=== PATIENT | male | born 1965 | race Caucasian/White ===

== ENCOUNTER 2024-07-08 14:52 | Inpatient (IN) | payer MEDICARE, MEDICAID ==
[~2024-07-08] VITALS: Ht 193 cm; Wt 75.7 kg
[~2024-07-08 14:52] MED LIST: ACET-2247 PO; ASPI-1450 PO; ATOR10TA PO; BENZ2TAB84 PO; DAPA10TA7 PO; ERGO500054 PO; FLUP25VI5 SQ; GABA-1181 PO; IBUP-1492 PO; INSLAN SQ; MAG30ORA11 PO; METF-1211 PO; MULT-248 PO; OLAN10TA74 PO
[2024-07-08] MEDS ORDERED: ZOLPIDEM TARTRATE 10 MG TABLET PO PRN (20:00)
[2024-07-08] MEDS ORDERED: OLANZapine 5 MG RAPDIS TABLET PO PRN (20:00)
[2024-07-08] MEDS ORDERED: LORazepam 2 MG TABLET PO PRN (20:00)
[2024-07-08] MEDS ORDERED: MAG HYDROX/ALUMINUM HYD/SIMETH ES 30 ML SUSPENSION UDCUP PO PRN (21:30)
[2024-07-08] MEDS ORDERED: GuaiFENesin/D-METHORPHAN [SUGAR-FREE] 200-20MG/10 ML SYRUP UDCUP PO PRN (21:30)
[2024-07-08] MEDS ORDERED: TUBERCULIN, PURIFIED PROTEIN DERIVATIVE 5 TU/0.1 ML SYRINGE ID ONE (21:30)
[2024-07-08] MEDS ORDERED: MAGNESIUM HYDROXIDE SUSPENSION 30 ML UDCUP PO PRN (21:30)
[2024-07-08] MEDS ORDERED: PROMETHAZINE HCL 25 MG TABLET PO PRN (21:30)
[2024-07-08] MEDS ORDERED: HydrOXYzine PAMOATE 50 MG CAPSULE PO PRN (21:30)
[2024-07-08] MEDS ORDERED: LOPERAMIDE HCL 2 MG CAPSULE PO PRN (21:30)
[2024-07-08] MEDS ORDERED: ACETAMINOPHEN 325 MG TABLET PO PRN (21:30)
[2024-07-08] MEDS ORDERED: HALOPERIDOL LACTATE 5 MG/ML VIAL IM PRN (21:45)
[2024-07-09 00:27] VITALS: BP 112/60; PULSE 84; RESP 18; TEMP 98.3; O2SAT 95
[2024-07-09 00:28] VITALS: BP 112/60; PULSE 84; RESP 18; TEMP 98.3; O2SAT 95
[2024-07-09] MEDS: PALIPERIDONE PALMITATE 234 MG/1.5 ML SYRINGE IM ONE (09:00)
[2024-07-09] MEDS: THIAMINE 100 MG TABLET PO SCH (09:00)
[2024-07-09] MEDS: FOLIC ACID 1 MG TABLET PO SCH (09:00)
[2024-07-09] MEDS: TRIHEXYPHENIDYL HCL 2 MG TABLET PO SCH (09:00)
[2024-07-09] MEDS ORDERED: HALOPERIDOL 1 MG TABLET PO SCH (09:00)
[2024-07-09] MEDS: MULTIVITAMINS WITH MINERALS, THERAPEUTIC TABLET PO SCH (09:00)
[2024-07-09 10:00] VITALS: RESP 18
[2024-07-09] MEDS ORDERED: FluPHENAZine HCL 5 MG TABLET PO PRN (15:45)
[2024-07-09] MEDS ORDERED: FluPHENAZine HCL 1 MG TABLET PO SCH (17:00)
[2024-07-09 20:10] VITALS: BP 113/71; PULSE 85; RESP 18; TEMP 97.7; O2SAT 99
[2024-07-09] MEDS: MELATONIN 5 MG TABLET PO SCH (20:58)
[2024-07-10 08:28] VITALS: BP 107/62; PULSE 75; RESP 16; TEMP 98.1; O2SAT 96
[2024-07-10] MEDS ORDERED: FLUPHENAZINE HCL 5 MG/ML PO SCH (09:00)
[2024-07-10] MEDS ORDERED: FluPHENAZine HCL 2.5 MG/ML INJ IM PRN (09:00)
[2024-07-10 20:40] VITALS: BP 107/58; PULSE 90; RESP 17; TEMP 98.6; O2SAT 96
[2024-07-11 08:24] VITALS: BP 112/62; PULSE 97; RESP 19; TEMP 98.2; O2SAT 95
[2024-07-11] MEDS: INFLUENZA VIRUS VACCINE TVS (6MO+) 2024-25/PF 45 MCG/0.5 ML SYRINGE IM. ONE (09:01)
[2024-07-11 20:40] VITALS: BP 111/64; PULSE 93; RESP 18; TEMP 97.9; O2SAT 96
[2024-07-12 09:21] VITALS: BP 107/51; PULSE 90; RESP 16; TEMP 97.9; O2SAT 95
[2024-07-12 21:00] VITALS: BP 128/77; PULSE 86; RESP 16; TEMP 99; O2SAT 96
[2024-07-13 07:43] LABS: CANDIDA AURIS PCR,SURVEILLANCE Not Detected C(t) (Not Detectd)
[2024-07-13 09:40] VITALS: BP 105/53; PULSE 92; RESP 18; TEMP 97.7; O2SAT 96
[2024-07-13] MEDS: PALIPERIDONE PALMITATE 156 MG/ML SYRINGE IM ONE ×2 (10:04→11:33)
[2024-07-13] MEDS ORDERED: GLUCAGON,HUMAN RECOMBINANT 1 MG VIAL IM PRN (11:00)
[2024-07-13] MEDS ORDERED: PALIPERIDONE PALMITATE 156 MG/ML SYRINGE IM ONE (12:00)
[2024-07-13] MEDS: MetFORMIN HCL 500 MG TABLET PO SCH (16:31)
[2024-07-13] MEDS: INSULIN LISPRO 100 UNITS/ML SQ PRN (16:35)
[2024-07-13 16:36] LABS: GLUCOMETER DEV NAME(LOC) BV2X.3; GLUCOSE,POINT OF CARE 399 MG/DL (70-110)
[2024-07-13] MEDS: ATORVASTATIN CALCIUM 20 MG TABLET PO SCH (20:28)
[2024-07-13] MEDS: OLANZapine 5 MG RAPDIS TABLET PO SCH (20:29)
[2024-07-13 20:40] VITALS: BP 103/67; PULSE 86; RESP 18; TEMP 97.8; O2SAT 98
[2024-07-13] MEDS: INSULIN GLARGINE,HUM.REC.ANLOG 100 UNITS/ML SQ SCH (21:01)
[2024-07-13 21:15] LABS: GLUCOMETER DEV NAME(LOC) BV2X.3; GLUCOSE,POINT OF CARE 335 MG/DL (70-110)
[2024-07-14 06:36] LABS: GLUCOMETER DEV NAME(LOC) BV2X.3; GLUCOSE,POINT OF CARE 219 MG/DL (70-110)
[2024-07-14 08:40] VITALS: BP 108/62; PULSE 77; RESP 19; TEMP 98; O2SAT 97
[2024-07-14 08:40] LABS: GLUCOMETER DEV NAME(LOC) BV2X.3; GLUCOSE,POINT OF CARE 260 MG/DL (70-110)
[2024-07-14 09:41] LABS: HEMOGLOBIN A1C 10.8 % (3.8-5.6)
[2024-07-14 09:53] LABS: ALANINE AMINOTRANSFERASE 22 U/L (12-78); ALKALINE PHOSPHATASE 111 U/L (46-116); ANION GAP 6 mmol/L (8-16); ASPARTATE AMINOTRANSFERASE 9 U/L (15-37); BILIRUBIN,TOTAL 0.7 mg/dL (0.1-1.0); CALCIUM, TOTAL 8.9 mg/dL (8.8-10.5); CARBON DIOXIDE 32 mmol/L (22-29); CHLORIDE 103 mmol/L (98-107); CHOL/HDL RATIO 2.9 (4.2-7.3); CHOLESTEROL 121 mg/dL (131-200); CREATININE 0.35 mg/dL (0.60-1.30); FREE T4 (FREE THYROXINE) 1.48 ng/dL (0.76-1.46); GLOMERULAR FILTR. RATE CALC > 60 mL/min (>60); GLUCOSE,RANDOM 204 mg/dL (70-110); HDL CHOLESTEROL 42 mg/dL (40-60); LDL CHOL (CALC.) 70 mg/dL (0-130); SODIUM SERUM 141 mmol/L (136-145); THYROID STIMULATING HORMONE 1.64 uIU/mL (0.36-3.74); TRIGLYCERIDES 46 mg/dL (15-150); UREA NITROGEN, BLOOD 12 mg/dL (7-18)
[2024-07-14 10:27] LABS: ALBUMIN 2.9 g/dL (3.4-5.0)
[2024-07-14 12:06] LABS: GLUCOMETER DEV NAME(LOC) BV2X.3; GLUCOSE,POINT OF CARE 304 MG/DL (70-110)
[2024-07-14 16:31] LABS: GLUCOMETER DEV NAME(LOC) BV2X.3; GLUCOSE,POINT OF CARE 260 MG/DL (70-110)
[2024-07-14 20:33] VITALS: BP 97/58; PULSE 79; RESP 18; TEMP 98.3; O2SAT 96
[2024-07-14] MEDS: OLANZapine 10 MG RAPDIS TABLET PO SCH (20:38)
[2024-07-14 20:46] LABS: GLUCOMETER DEV NAME(LOC) BV2X.3; GLUCOSE,POINT OF CARE 326 MG/DL (70-110)
[2024-07-15 07:00] LABS: GLUCOMETER DEV NAME(LOC) BV2X.3; GLUCOSE,POINT OF CARE 171 MG/DL (70-110)
[2024-07-15 08:28] VITALS: BP 112/63; PULSE 80; RESP 18; TEMP 97.7; O2SAT 95
[2024-07-15 12:05] LABS: GLUCOMETER DEV NAME(LOC) BV2X.3; GLUCOSE,POINT OF CARE 269 MG/DL (70-110)
[2024-07-15 18:00] LABS: GLUCOMETER DEV NAME(LOC) BV2X.3; GLUCOSE,POINT OF CARE 362 MG/DL (70-110)
[2024-07-15 20:38] VITALS: BP 107/69; PULSE 99; RESP 17; TEMP 98.1; O2SAT 97
[2024-07-15 21:50] LABS: GLUCOMETER DEV NAME(LOC) BV2X.3; GLUCOSE,POINT OF CARE 260 MG/DL (70-110)
[2024-07-15] MEDS: OLANZapine 10 MG RAPDIS TABLET PO SCH (21:50)
[2024-07-15] MEDS ORDERED: OLAN10TA26 PO (23:28)
[2024-07-16 06:21] LABS: GLUCOMETER DEV NAME(LOC) BV2X.3; GLUCOSE,POINT OF CARE 122 MG/DL (70-110)
[2024-07-16 08:14] VITALS: BP 105/62; PULSE 90; RESP 16; TEMP 98.7; O2SAT 96
[2024-07-16 11:51] LABS: GLUCOMETER DEV NAME(LOC) BV2X.3; GLUCOSE,POINT OF CARE 283 MG/DL (70-110)
[2024-07-16] MEDS ORDERED: INSLAN SQ (13:52)
== END 2024-07-16 15:30 | DRG 885 ==
LOC: B2X 19:43
PROVIDERS: ADMIT Psychiatry & Neurology Psychiatry; ATTEND Psychiatry & Neurology Psychiatry
PROC: GZHZZZZ Group Psychotherapy (ICD-10-PCS; principal; 2024-07-08)
PROC: GZ51ZZZ Individual Psychotherapy, Behavioral (ICD-10-PCS; 2024-07-08)
PROC: GZ56ZZZ Individual Psychotherapy, Supportive (ICD-10-PCS; 2024-07-08)
DX: F20.0 Paranoid schizophrenia (principal); F17.200 Nicotine dependence, unspecified, uncomplicated; E11.9 Type 2 diabetes mellitus without complications; E78.00 Pure hypercholesterolemia, unspecified; I10 Essential (primary) hypertension; J44.9 Chronic obstructive pulmonary disease, unspecified; Z63.9 Problem related to primary support group, unspecified; Z59.9 Problem related to housing and economic circumstances, unspecified; Z65.3 Problems related to other legal circumstances; Z55.9 Problems related to education and literacy, unspecified; Z88.5 Allergy status to narcotic agent; Z91.148 Patient's other noncompliance with medication regimen for other reason
CPT/HCPCS: 80053; 80061; 82962; 83036; 84439; 84443; 87081; 87481; J1815